=== PATIENT | female | born 1990 | race Caucasian/White ===

== ENCOUNTER 2018-03-17 00:37 | Emergency (ER) | payer BC, MEDICAID ==
[2018-03-17] MEDS ORDERED: Pantoprazole 40 MG Vial IVPUSH ONE (00:59)
[2018-03-17] MEDS ORDERED: Sodium Chloride 0.9% 1,000 ML IV SCH (01:00)
--- NOTE | 2018-03-17 01:26 | EDM.PDOC ---
ED HPI GENERAL MEDICAL PROBLEM - General Chief Complaint: General Stated Complaint: TROUBLE BREATHING AND SWALLOWING Time Seen by Provider: 03/17/18 01:26 Source of Information: Reports: Patient - History of Present Illness INITIAL COMMENTS - FREE TEXT/NARRATIVE: HISTORY AND PHYSICAL: History of present illness: [Patient presents with sensation of a lump in her throat she states she has intermittent wheeze and hoarse voice as compared to previous, she has had some problem with regurgitation of food She has been evaluated by her primary care as recently as today she is scheduled for endoscopy in less than one week currently on Prilosec Zantac and Pepto-Bismol No fever nausea vomiting chills sweats no most sore throat muffled voice drooling or trismus no chest pain shortness breath headache dizziness or palpitation no bowel or urine symptoms Patient is in no apparent distress able to speak full sentences clearly ] Review of systems: As per history of present illness and below otherwise all systems reviewed and negative. Past medical history: As per history of present illness and as reviewed below otherwise noncontributory. Surgical history: As per history of present illness and as reviewed below otherwise noncontributory. Social history: No reported history of drug or alcohol abuse. Family history: As per history of present illness and as reviewed below otherwise noncontributory. Physical exam: HEENT: Atraumatic, normocephalic, pupils reactive, negative for conjunctival pallor or scleral icterus, mucous membranes moist, throat clear, neck supple, nontender, trachea midline. No erythema no mass no stridor Lungs: Clear to auscultation, breath sounds equal bilaterally, chest nontender. Heart: S1S2, regular, negative for clicks, rubs, or JVD. Abdomen: Soft, nondistended, nontender. Negative for masses or hepatosplenomegaly. Negative for costovertebral tenderness. Pelvis: Stable nontender. Genitourinary: Deferred. Rectal: Deferred. Extremities: Atraumatic, negative for cords or calf pain. Neurovascular unremarkable. Neuro: Awake, alert, oriented. Cranial nerves II through XII unremarkable. Cerebellum unremarkable. Motor and sensory unremarkable throughout. Exam nonfocal. Diagnostics: [CBC CMP UA Chest 2 views ] Therapeutics: [Russell saline 1 25 mL Vasotec 1.25 mg IV ]Clonidine 0.1 Impression: [ GERD Hypertension Definitive disposition and diagnosis as appropriate pending reevaluation and review of above. - Related Data Allergies Allergy/AdvReac Type Severity Reaction Status Date / Time No Known Allergies Allergy Verified 03/17/18 00:45 Home Meds: Home Meds Levothyroxine [Synthroid] 1 tab PO DAILY 03/17/18 [History] metFORMIN [Glucophage XR] 1 tab PO BID 03/17/18 [History] Past Medical History Endocrine/Metabolic History: Reports: Diabetes, Type II, Hypothyroidism - Past Surgical History HEENT Surgical History: Reports: Adenoidectomy, Tonsillectomy Social & Family History - Family History Family Medical History: Noncontributory - Tobacco Use Smoking Status *Q: Never Smoker - Recreational Drug Use Recreational Drug Use: No ED ROS GENERAL - Review of Systems Review Of Systems: ROS reveals no pertinent complaints other than HPI. ED EXAM, GENERAL - Physical Exam Exam: See Below Course - Vital Signs Last Recorded V/S: Last Vital Signs Temp 97.3 F 03/17/18 00:37 Pulse 95 03/17/18 02:22 Resp 18 03/17/18 00:37 BP 167/87 H 03/17/18 03:03 Pulse Ox 100 03/17/18 00:37 - Orders/Labs/Meds Orders: Active Orders 24 hr Category Date Time Status EKG Documentation Completion [RC] STAT Care 03/17/18 01:00 Active Chest 1V Frontal [CR] Stat Exams 03/17/18 01:00 Taken HCG QUALITATIVE,URINE [URCHEM] Stat Lab 03/17/18 01:20 Ordered UA W/MICROSCOPIC [URIN] Stat Lab 03/17/18 01:20 Ordered Sodium Chloride 0.9% [Normal Saline] 1,000 ml Med 03/17/18 01:00 Active IV STAT Medication Orders Sodium Chloride (Normal Saline) 1,000 mls @ 125 mls/hr IV STAT NIKO Last Admin: 03/17/18 01:34 Dose: 125 mls/hr Labs: Laboratory Tests 03/17/18 03/17/18 03/17/18 Range/Units 01:20 01:20 01:30 WBC 8.33 (4.0-11.0) K/uL RBC 4.58 (4.30-5.90) M/uL Hgb 14.0 (12.0-16.0) g/dL Hct 41.8 (36.0-46.0) % MCV 91.3 (80.0-98.0) fL MCH 30.6 (27.0-32.0) pg MCHC 33.5 (31.0-37.0) g/dL RDW Std Deviation 40.9 (28.0-62.0) fl RDW Coeff of Eve 12 (11.0-15.0) % Plt Count 282 (150-400) K/uL MPV 10.10 (7.40-12.00) fL Neut % (Auto) 47.5 L (48.0-80.0) % Lymph % (Auto) 40.8 H (16.0-40.0) % Corson % (Auto) 9.8 (0.0-15.0) % Eos % (Auto) 1.4 (0.0-7.0) % Baso % (Auto) 0.5 (0.0-1.5) % Neut # (Auto) 4.0 (1.4-5.7) K/uL Lymph # (Auto) 3.4 H (0.6-2.4) K/uL Corson # (Auto) 0.8 (0.0-0.8) K/uL Eos # (Auto) 0.1 (0.0-0.7) K/uL Baso # (Auto) 0.0 (0.0-0.1) K/uL Sodium (136-145) mmol/L Potassium (3.5-5.1) mmol/L Chloride (98-107) mmol/L Carbon Dioxide (21.0-32.0) mmol/L BUN (7.0-18.0) mg/dL Creatinine (0.6-1.0) mg/dL Est Cr Clr Drug Dosing mL/min Estimated GFR (MDRD) ml/min Glucose (74-106) mg/dL Calcium (8.5-10.1) mg/dL Total Bilirubin (0.2-1.0) mg/dL AST (15-37) IU/L ALT (14-63) IU/L Alkaline Phosphatase (46-116) U/L Total Protein (6.4-8.2) g/dL Albumin (3.4-5.0) g/dL Globulin (2.0-3.5) g/dL Albumin/Globulin Ratio (1.3-2.8) Urine Color YELLOW Urine Appearance CLEAR Urine pH 6.0 (5.0-8.0) Ur Specific Paisley 1.015 (1.001-1.035) Urine Protein NEGATIVE (NEGATIVE) mg/dL Urine Glucose (UA) NEGATIVE (NEGATIVE) mg/dL Urine Ketones 40 H (NEGATIVE) mg/dL Urine Occult Blood NEGATIVE (NEGATIVE) Urine Nitrite NEGATIVE (NEGATIVE) Urine Bilirubin NEGATIVE (NEGATIVE) Urine Urobilinogen 0.2 (<2.0) EU/dL Ur Leukocyte Esterase NEGATIVE (NEGATIVE) Urine RBC 0-2 (0-2/HPF) Urine WBC 0-2 (0-5/HPF) Ur Epithelial Cells FEW (NONE-FEW) Urine Bacteria FEW (NEGATIVE) Urine HCG, Qual NEGATIVE (NEGATIVE) 03/17/18 Range/Units 01:30 WBC (4.0-11.0) K/uL RBC (4.30-5.90) M/uL Hgb (12.0-16.0) g/dL Hct (36.0-46.0) % MCV (80.0-98.0) fL MCH (27.0-32.0) pg MCHC (31.0-37.0) g/dL RDW Std Deviation (28.0-62.0) fl RDW Coeff of Eve (11.0-15.0) % Plt Count (150-400) K/uL MPV (7.40-12.00) fL Neut % (Auto) (48.0-80.0) % Lymph % (Auto) (16.0-40.0) % Corson % (Auto) (0.0-15.0) % Eos % (Auto) (0.0-7.0) % Baso % (Auto) (0.0-1.5) % Neut # (Auto) (1.4-5.7) K/uL Lymph # (Auto) (0.6-2.4) K/uL Corson # (Auto) (0.0-0.8) K/uL Eos # (Auto) (0.0-0.7) K/uL Baso # (Auto) (0.0-0.1) K/uL Sodium 140 (136-145) mmol/L Potassium 3.8 (3.5-5.1) mmol/L Chloride 104 (98-107) mmol/L Carbon Dioxide 21.9 (21.0-32.0) mmol/L BUN 9 (7.0-18.0) mg/dL Creatinine 0.8 (0.6-1.0) mg/dL Est Cr Clr Drug Dosing 100.63 mL/min Estimated GFR (MDRD) > 60.0 ml/min Glucose 166 H (74-106) mg/dL Calcium 9.4 (8.5-10.1) mg/dL Total Bilirubin 0.6 (0.2-1.0) mg/dL AST 64 H (15-37) IU/L ALT 117 H (14-63) IU/L Alkaline Phosphatase 61 (46-116) U/L Total Protein 7.8 (6.4-8.2) g/dL Albumin 4.1 (3.4-5.0) g/dL Globulin 3.7 H (2.0-3.5) g/dL Albumin/Globulin Ratio 1.1 L (1.3-2.8) Urine Color Urine Appearance Urine pH (5.0-8.0) Ur Specific Paisley (1.001-1.035) Urine Protein (NEGATIVE) mg/dL Urine Glucose (UA) (NEGATIVE) mg/dL Urine Ketones (NEGATIVE) mg/dL Urine Occult Blood (NEGATIVE) Urine Nitrite (NEGATIVE) Urine Bilirubin (NEGATIVE) Urine Urobilinogen (<2.0) EU/dL Ur Leukocyte Esterase (NEGATIVE) Urine RBC (0-2/HPF) Urine WBC (0-5/HPF) Ur Epithelial Cells (NONE-FEW) Urine Bacteria (NEGATIVE) Urine HCG, Qual (NEGATIVE) Meds: Medications Generic Name Dose Route Start Last Admin Trade Name Freq PRN Reason Stop Dose Admin Sodium Chloride 1,000 mls @ 125 mls/hr 03/17/18 01:00 03/17/18 01:34 Normal Saline IV 125 mls/hr STAT NIKO Administration Discontinued Medications Generic Name Dose Route Start Last Admin Trade Name Freq PRN Reason Stop Dose Admin Clonidine HCl 0.1 mg 03/17/18 02:31 03/17/18 02:38 Catapres PO 03/17/18 02:32 0.1 mg ONETIME ONE Administration Enalaprilat 1.25 mg 03/17/18 01:41 03/17/18 01:53 Vasotec Iv IVPUSH 03/17/18 01:42 1.25 mg ONETIME ONE Administration Pantoprazole Sodium 80 mg 03/17/18 00:59 03/17/18 01:35 Protonix Iv IVPUSH 03/17/18 01:00 80 mg .BOLUS ONE Administration Departure - Departure Time of Disposition: 03:09 Disposition: Home, Self-Care 01 Condition: Good Clinical Impression: GERD (gastroesophageal reflux disease) - Discharge Information Referrals: PCP,None [Primary Care Provider] - Forms: ED Department Discharge Additional Instructions: Follow-up with endoscopy as scheduled next week Return if symptoms persist or worsen Follow-up with primary care and monitor your blood pressure is you may require medication to control blood pressure The following information is given to patients seen in the emergency department who are being discharged to home. This information is to outline your options for follow-up care. We provide all patients seen in our emergency department with a follow-up referral. The need for follow-up, as well as the timing and circumstances, are variable depending upon the specifics of your emergency department visit. If you don't have a primary care physician on staff, we will provide you with a referral. We always advise you to contact your personal physician following an emergency department visit to inform them of the circumstance of the visit and for follow-up with them and/or the need for any referrals to a consulting specialist. The emergency department will also refer you to a specialist when appropriate. This referral assures that you have the opportunity for follow-up care with a specialist. All of these measure are taken in an effort to provide you with optimal care, which includes your follow-up. Under all circumstances we always encourage you to contact your private physician who remains a resource for coordinating your care. When calling for follow-up care, please make the office aware that this follow-up is from your recent emergency room visit. If for any reason you are refused follow-up, please contact the [facility] emergency department at and asked to speak to the emergency department charge nurse. - My Orders Last 24 Hours: My Active Orders 03/17/18 01:00 EKG Documentation Completion [RC] STAT Chest 1V Frontal [CR] Stat Sodium Chloride 0.9% [Normal Saline] 1,000 ml IV STAT 03/17/18 01:20 HCG QUALITATIVE,URINE [URCHEM] Stat UA W/MICROSCOPIC [URIN] Stat - Assessment/Plan Last 24 Hours: My Active Orders 03/17/18 01:00 EKG Documentation Completion [RC] STAT Chest 1V Frontal [CR] Stat Sodium Chloride 0.9% [Normal Saline] 1,000 ml IV STAT 03/17/18 01:20 HCG QUALITATIVE,URINE [URCHEM] Stat UA W/MICROSCOPIC [URIN] Stat
[2018-03-17] MEDS ORDERED: Enalaprilat 1.25 MG/ML SDV IVPUSH ONE (01:41)
[2018-03-17 01:59] LABS: CHLORIDE,CL 104 mmol/L (98-107); SODIUM,NA 140 mmol/L (136-145)
[2018-03-17] MEDS ORDERED: cloNIDine 0.1 MG Tab PO ONE (02:31)
--- NOTE | 2018-03-19 10:10 | CR ---
EXAM DATE: 03/17/18 PATIENT'S AGE: 27 Patient: MARCO A WASSERMAN Facility: [place], [place] Site . Site : 1990 Study: XRay Chest [id number] 2:00:50 AM Ordering Physician: Dari Caraballo Final Report: Indication: Pain, shortness of breath Technique: Chest 1 view Comparison: None Findings/Impression: Lung volumes are low which accentuate the cardiac size. Normal superior mediastinum. Lungs and pleural spaces are clear. No acute osseous abnormality. Dictated by Angie Montez MD @ Mar 17 2018 2:14AM (Electronic Signature) Report Signed by Proxy. TERESO
== END 2018-03-17 03:25 | disposition home or self-care (01) ==
LOC: MW.ED 00:37
DX: K21.9 Gastro-esophageal reflux disease without esophagitis (principal); I10 Essential (primary) hypertension; E11.9 Type 2 diabetes mellitus without complications; E03.9 Hypothyroidism, unspecified; Z79.899 Other long term (current) drug therapy
CPT/HCPCS: 36415; 71045; 80053; 81001; 81025; 85025; 93005; 96361; 96374; 96375; 99284; A9270; C9113; J7040; 99283

== ENCOUNTER 2018-05-15 07:57 | Day surgery (SDC) | payer BC ==
[~2018-05-15 07:57] MED LIST: Lactated Ringers 1,000 ML IV SCH; Lidocaine 2% 5 ML SDV ONE; Midazolam 1 MG/ML 2 ML SDV ONE; Propofol 200 MG/20 ML SDV ONE; Sodium Chloride 0.9% 10 ML Syringe FLUSH PRN; Sodium Chloride 0.9% 2.5 ML Syringe FLUSH PRN; fentaNYL 100 MCG/2 ML SDV ONE
--- NOTE | 2018-05-15 08:25 | PCM.PREANE ---
Preanesthetic Assessment - Anesthesia/Transfusion/Family Hx Anesthesia History: Prior Anesthesia Without Reaction Family History of Anesthesia Reaction: No Transfusion History: No Prior Transfusion(s) Intubation History: Unknown - Review of Systems General: No Symptoms Pulmonary: No Symptoms Cardiovascular: No Symptoms Gastrointestinal: Diarrhea Neurological: No Symptoms Other: Reports: None - Physical Assessment O2 Sat by Pulse Oximetry: 100 Respiratory Rate: 16 Vital Signs: Last Vital Signs Temp 36.5 C 05/15/18 08:10 Pulse 92 05/15/18 08:10 Resp 16 05/15/18 08:10 BP 161/95 H 05/15/18 08:10 Pulse Ox 100 05/15/18 08:10 Height: 1.68 m Weight: 113.852 kg ASA Class: 3 Mental Status: Alert & Oriented x3 Airway Class: Mallampati = 2 Dentition: Reports: Normal Dentition Thyro-Mental Finger Breadths: 3 Mouth Opening Finger Breadths: 3 ROM/Head Extension: Full Lungs: Clear to Auscultation, Normal Respiratory Effort Cardiovascular: Regular Rate, Regular Rhythm - Allergies Allergies/Adverse Reactions: Allergies Allergy/AdvReac Type Severity Reaction Status Date / Time No Known Allergies Allergy Verified 05/10/18 10:48 - Blood Blood Available: No - Anesthesia Plan Pre-Op Medication Ordered: None - Acknowledgements Anesthesia Type Planned: MAC Pt an Appropriate Candidate for the Planned Anesthesia: Yes Alternatives and Risks of Anesthesia Discussed w Pt/Guardian: Yes Pt/Guardian Understands and Agrees with Anesthesia Plan: Yes PreAnesthesia Questionnaire HEENT History: Reports: Other (See Below) Other HEENT History: wears glasses Cardiovascular History: Reports: High Cholesterol, Other (See Below) Other Cardiovascular History: murmur as an infant Respiratory History: Reports: Other (See Below) Other Respiratory History: states may have sleep apnea but has not been tested Gastrointestinal History: Reports: GERD, Helicobacter Pylori, Other (See Below) (fatty liver) Musculoskeletal History: Reports: Back Pain, Chronic Psychiatric History: Reports: Depression Endocrine/Metabolic History: Reports: Diabetes, Type II, Hypothyroidism ( Dina thyroiditis), Obesity/BMI 30+ (BMI 40.5), Other (See Below) ( metabolic syndrome) - Past Surgical History Head Surgeries/Procedures: Reports: None HEENT Surgical History: Reports: Adenoidectomy, Eye Surgery, Myringotomy w Tube( s), Tonsillectomy - SUBSTANCE USE Smoking Status *Q: Never Smoker Recreational Drug Use History: No - HOME MEDS Home Medications: Home Meds Levothyroxine [Synthroid] 75 mcg PO DAILY 03/17/18 [History] metFORMIN [Glucophage XR] 1,000 mg PO BID 03/17/18 [History] Dulaglutide [Trulicity] 1 injection SUBCUT WEEKLY 05/10/18 [History] Omeprazole 2 tab PO BID 05/10/18 [History] - CURRENT (IN HOUSE) MEDS Current Meds: Current Medications Lactated Ringer's (Ringers, Lactated) 1,000 mls @ 125 mls/hr IV ASDIRECTED NIKO Last Admin: 05/15/18 08:17 Dose: 125 mls/hr Sodium Chloride (Saline Flush) 10 ml FLUSH ASDIRECTED PRN PRN Reason: Keep Vein Open Sodium Chloride (Saline Flush) 2.5 ml FLUSH ASDIRECTED PRN PRN Reason: Keep Vein Open Discontinued Medications Fentanyl (Sublimaze) Confirm Administered Dose 100 mcg .ROUTE .STK-MED ONE Stop: 05/15/18 07:26 Lidocaine (Xylocaine-Mpf 2%) Confirm Administered Dose 5 ml .ROUTE .STK-MED ONE Stop: 05/15/18 07:26 Midazolam HCl (Versed 1 Mg/Ml) Confirm Administered Dose 2 mg .ROUTE .STK-MED ONE Stop: 05/15/18 07:26 Propofol (Diprivan 20 Ml) Confirm Administered Dose 400 mg .ROUTE .STK-MED ONE Stop: 05/15/18 07:26
[2018-05-15] MEDS ORDERED: Ondansetron 4 MG/2 ML SDV ONE (09:11)
--- NOTE | 2018-05-15 09:20 | PCM.OPNOTE ---
- General Post-Op/Procedure Note Date of Surgery/Procedure: 05/15/18 Operative Procedure(s): Diagnostic EGD Findings: Mild duodenitis Pre Op Diagnosis: Dysphagia, history of recent H pylori infection Post-Op Diagnosis: Dysphagia, duodenitis Anesthesia Technique: LUCIANO Primary Surgeon: Geovanna Johsi Condition: Good
--- NOTE | 2018-05-16 11:22 | OR ---
SURGEON: ISIS RUIZ MD DATE OF PROCEDURE: 05/15/2018 PREOPERATIVE DIAGNOSES: 1. History of Helicobacter pylori infection. 2. Dysphagia. POSTOPERATIVE DIAGNOSIS: Duodenitis. PROCEDURE PERFORMED: Diagnostic EGD. ANESTHESIA: MAC. INSTRUMENT USED: Olympus endoscope. EXTENT OF EXAM: To the second portion of the duodenum. PREPARATION: Good. LIMITATIONS: None. INDICATIONS: The patient is a 27-year-old female who presents with dysphagia and recent history of H. pylori infection. She was treated for H. pylori infection, but she still has symptoms of dysphagia. The decision was made to perform a diagnostic EGD. We discussed the procedure as well as expected perioperative course. We discussed the risks including bleeding or perforation. The patient verbalized understanding and wishes to proceed. PROCEDURE IN DETAIL: The patient was brought in to the endoscopy suite and placed in a beach chair position. A time-out was completed verifying the patient's name, age, date of , allergies, and procedure to be performed. Monitored anesthesia care was induced and continuous oxygen was provided via nasal cannula throughout the procedure. A bite block was placed in the patient's mouth. A well-lubricated endoscope was placed in the patient's mouth and advanced under direct visualization to the second portion of the duodenum. This appeared normal and a photograph was taken. The scope was then fully withdrawn while examining the color, texture, anatomy, and integrity of the mucosa of the upper GI tract. The patient was noted to have some [id number] duodenitis in the duodenal bulb. Photographs of this were taken. The scope was then brought into the stomach. A photograph was taken of the pylorus as well as the GE junction. Both appeared normal. The gastric mucosa appeared healthy with no evidence of any inflammation or ulceration. Biopsies were taken of the gastric antrum, body, and fundus and sent for H. pylori testing and histologic review. The scope was brought into the distal esophagus. This appeared normal and a photograph was taken. There was no evidence of any esophagitis. The scope was then removed. The patient tolerated procedure well and was taken to PACU in stable condition. ENDOSCOPIC DIAGNOSIS: Duodenitis. RECOMMENDATIONS: We will have patient followup in clinic in 2 weeks. If the biopsies of her stomach appeared normal, I will order an esophagram to further characterize why the patient is continuing to have dysphagia. She should stay on PPI therapy for now. HUGO BRODREICK /[id number]
== END 2018-05-15 09:47 | disposition home or self-care (01) ==
LOC: MW.SDS 07:57
PROVIDERS: ATTEND Surgery
DX: R13.10 Dysphagia, unspecified (principal); K29.80 Duodenitis without bleeding; K29.50 Unspecified chronic gastritis without bleeding; K59.09 Other constipation; K76.0 Fatty (change of) liver, not elsewhere classified; K21.9 Gastro-esophageal reflux disease without esophagitis; K82.8 Other specified diseases of gallbladder; E06.3 Autoimmune thyroiditis; E11.9 Type 2 diabetes mellitus without complications; E78.00 Pure hypercholesterolemia, unspecified; E78.5 Hyperlipidemia, unspecified; E88.81 Metabolic syndrome and other insulin resistance; E66.01 Morbid (severe) obesity due to excess calories; Z68.41 Body mass index [BMI] 40.0-44.9, adult; G47.30 Sleep apnea, unspecified; F32.9 Major depressive disorder, single episode, unspecified; Z79.84 Long term (current) use of oral hypoglycemic drugs; Z79.899 Other long term (current) drug therapy
CPT/HCPCS: 43239; 81025; J2250; J2405; J3010; J7120; J2704

== ENCOUNTER 2019-10-07 03:42 | Emergency (ER) | payer BC ==
[2019-10-07] MEDS ORDERED: Diphtheria,Pertussis(Acell),Tetanus Vaccine 0.5 ML Syringe IM ONE (03:55)
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
[2019-10-07] MEDS ORDERED: Bacitracin Oint 1 GM U/D Packet TOP ONE (04:51)
[2019-10-07 05:12] LABS: ACETAMINOPHEN <2.0 ug/mL
[2019-10-07 05:23] LABS: BLOOD UREA NITROGEN,BUN 15 mg/dL (7.0-18.0); CARBON DIOXIDE,CO2 24.1 mmol/L (21.0-32.0); CHLORIDE,CL 103 mmol/L (98-107); GLUCOSE RANDOM 160 mg/dL (74-106); POTASSIUM,K 3.8 mmol/L (3.5-5.1); SODIUM,NA 138 mmol/L (136-145)
[2019-10-07] MEDS ORDERED: Nitrofurantoin Monohydrate/Macrocrystalline 100 MG Cap PO ONE (06:35)
== END 2019-10-07 08:15 ==
LOC: MW.ED 03:42
DX: S61.012A Laceration without foreign body of left thumb without damage to nail, initial encounter (principal); N39.0 Urinary tract infection, site not specified; E03.9 Hypothyroidism, unspecified; E11.9 Type 2 diabetes mellitus without complications; E66.9 Obesity, unspecified; Z79.84 Long term (current) use of oral hypoglycemic drugs; X78.1XXA Intentional self-harm by knife, initial encounter
CPT/HCPCS: 12001; 36415; 80053; 80305; 80320; 80329; 81001; 81025; 84443; 85025; 87086; 99284; A9270; J2001; G0480

== ENCOUNTER 2021-03-11 10:52 | Emergency (ER) | payer MEDICAID ==
--- NOTE | 2021-03-11 11:27 | EDM.PDOC ---
ED HPI GENERAL MEDICAL PROBLEM - General Chief Complaint: ENT Problem Stated Complaint: LUMP ON RIGHT SIDE OF FACE/NECK Time Seen by Provider: 03/11/21 11:13 Source of Information: Reports: Patient History Limitations: Reports: No Limitations - History of Present Illness INITIAL COMMENTS - FREE TEXT/NARRATIVE: Patient is a 30-year-old female who presents today for pain and swelling to the left lower jaw area. Patient thought she had a pimple and attempted to pop it a few days ago since that time the swelling has increased as well as the pain. Patient states she now has pain when she is trying to swallow but states she is able to easily swallow saliva in brief without issues. Patient denies any fever chills nausea vomiting. face Pain Score (Numeric/FACES): 9 - Related Data Allergies Allergy/AdvReac Type Severity Reaction Status Date / Time No Known Allergies Allergy Verified 03/11/21 11:12 Home Meds: Home Meds Levothyroxine [Synthroid] 75 mcg PO DAILY 03/17/18 [History] Semaglutide [Ozempic] 0.5 injection SQ ASDIRECTED 10/07/19 [History] Past Medical History HEENT History: Reports: Other (See Below) Other HEENT History: wears glasses Cardiovascular History: Reports: High Cholesterol, Other (See Below) Other Cardiovascular History: murmur as an infant Respiratory History: Reports: Other (See Below) Other Respiratory History: states may have sleep apnea but has not been tested Gastrointestinal History: Reports: GERD, Helicobacter Pylori, Other (See Below) Genitourinary History: Reports: None Musculoskeletal History: Reports: Back Pain, Chronic Neurological History: Reports: None Psychiatric History: Reports: Depression Endocrine/Metabolic History: Reports: Diabetes, Type II, Hypothyroidism, Other (See Below), Obesity/BMI 30+ 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 Hematologic History: Reports: None Immunologic History: Reports: None Oncologic (Cancer) History: Reports: None Dermatologic History: Reports: None - Infectious Disease History Infectious Disease History: Reports: None - Past Surgical History Head Surgeries/Procedures: Reports: None HEENT Surgical History: Reports: Adenoidectomy, Tonsillectomy Social & Family History - Family History Family Medical History: No Pertinent Family History - Caffeine Use Caffeine Use: Reports: None ED ROS ENT - Review of Systems Review Of Systems: See Below Constitutional: Reports: No Symptoms HEENT: Reports: Other (lower jaw pain) Respiratory: Reports: No Symptoms Endocrine: Reports: No Symptoms GI/Abdominal: Reports: No Symptoms : Reports: No Symptoms Musculoskeletal: Reports: No Symptoms Skin: Reports: No Symptoms Neurological: Reports: No Symptoms Psychiatric: Reports: No Symptoms Hematologic/Lymphatic: Reports: No Symptoms Immunologic: Reports: No Symptoms ED EXAM, ENT - Physical Exam Exam: See Below Exam Limited By: No Limitations General Appearance: Alert, WD/WN, No Apparent Distress Mouth/Throat: Normal Gums, Normal Lips, Gum Swelling, Other (redness and tenderness to left lower jaw). No: Trismus Neck: Normal Inspection, Supple, Non-Tender Respiratory/Chest: No Respiratory Distress, Lungs Clear Cardiovascular: Normal Peripheral Pulses, Regular Rate, Rhythm GI/Abdominal: Normal Bowel Sounds, Soft, Non-Tender Neurological: Alert, Oriented Course - Vital Signs Last Recorded V/S: Last Vital Signs Temp 97.7 F 03/11/21 11:22 Pulse 82 03/11/21 13:10 Resp 18 03/11/21 13:10 BP 157/125 H 03/11/21 11:22 Pulse Ox 96 03/11/21 13:10 - Orders/Labs/Meds Orders: Active Orders 24 hr Category Date Time Status CULTURE BLOOD [BC] Stat Lab 03/11/21 11:29 Received CULTURE BLOOD [BC] Stat Lab 03/11/21 11:40 Received Blood Culture x2 Reflex Set [OM.PC] Stat Oth 03/11/21 11:21 Ordered Labs: Laboratory Tests 03/11/21 03/11/21 03/11/21 Range/Units 11:29 11:29 11:29 WBC 9.57 (4.0-11.0) K/uL RBC 4.53 (4.30-5.90) M/uL Hgb 14.3 (12.0-16.0) g/dL Hct 42.4 (36.0-46.0) % MCV 93.6 (80.0-98.0) fL MCH 31.6 (27.0-32.0) pg MCHC 33.7 (31.0-37.0) g/dL RDW Std Deviation 45.6 (28.0-62.0) fl RDW Coeff of Eve 13 (11.0-15.0) % Plt Count 267 (150-400) K/uL MPV 10.10 (7.40-12.00) fL Neut % (Auto) 72.9 (48.0-80.0) % Lymph % (Auto) 17.5 (16.0-40.0) % Prentiss % (Auto) 9.1 (0.0-15.0) % Eos % (Auto) 0.3 (0.0-7.0) % Baso % (Auto) 0.2 (0.0-1.5) % Neut # (Auto) 7.0 H (1.4-5.7) K/uL Lymph # (Auto) 1.7 (0.6-2.4) K/uL Prentiss # (Auto) 0.9 H (0.0-0.8) K/uL Eos # (Auto) 0.0 (0.0-0.7) K/uL Baso # (Auto) 0.0 (0.0-0.1) K/uL Nucleated RBC % 0.0 /100WBC Nucleated RBCs # 0 K/uL Lactate 0.9 (0.20-2.00) mmol/L Sodium 138 (136-145) mmol/L Potassium 3.8 (3.5-5.1) mmol/L Chloride 101 (98-107) mmol/L Carbon Dioxide 25.0 (21.0-32.0) mmol/L BUN 10 (7.0-18.0) mg/dL Creatinine 0.7 (0.6-1.0) mg/dL Est Cr Clr Drug Dosing TNP Estimated GFR (MDRD) > 60.0 ml/min Glucose 121 H (74-106) mg/dL Calcium 8.9 (8.5-10.1) mg/dL Total Bilirubin 0.9 (0.2-1.0) mg/dL AST 18 (15-37) IU/L ALT 46 (14-63) IU/L Alkaline Phosphatase 64 (46-116) U/L Total Protein 7.8 (6.4-8.2) g/dL Albumin 3.9 (3.4-5.0) g/dL Globulin 3.9 (2.6-4.0) g/dL Albumin/Globulin Ratio 1.0 (0.9-1.6) Meds: Medications Discontinued Medications Generic Name Dose Route Start Last Admin Trade Name Jjq PRN Reason Stop Dose Admin Diphenhydramine HCl 25 mg 03/11/21 12:50 03/11/21 13:10 Diphenhydramine 50 Mg/Ml Sdv IVPUSH 03/11/21 12:51 25 mg ONETIME ONE Administration Vancomycin HCl 1.5 gm/ Premix 300 mls @ 200 mls/hr 03/11/21 11:35 03/11/21 11:55 IV 03/11/21 13:04 200 mls/hr ONETIME ONE Administration Iopamidol 75 ml 03/11/21 14:13 03/11/21 14:14 Iopamidol 755 Mg/Ml 500 Ml Multipack Bottle IVPUSH 03/11/21 14:14 75 ml ONETIME STA Administration - Re-Assessments/Exams Free Text/Narrative Re-Assessment/Exam: 03/11/21 14:[address] scan shows some superficial possible cellulitis but no abscess seen. Patient given IV antibiotics you are being discharged home on p.o. antibiotics. Departure - Departure Time of Disposition: 14:21 Disposition: Home, Self-Care 01 Condition: Good Clinical Impression: Cellulitis, face - Discharge Information *PRESCRIPTION DRUG MONITORING PROGRAM REVIEWED*: Not Applicable *COPY OF PRESCRIPTION DRUG MONITORING REPORT IN PATIENT YANIRA: Not Applicable Instructions: Cellulitis, Adult Referrals: Madison Paniagua NP [Primary Care Provider] - Forms: ED Department Discharge Additional Instructions: The following information is given to patients seen in the emergency department who are being discharged to home. This information is to outline your options for follow-up care. We provide all patients seen in our emergency department with a follow-up referral. The need for follow-up, as well as the timing and circumstances, are variable depending upon the specifics of your emergency department visit. If you don't have a primary care physician on staff, we will provide you with a referral. We always advise you to contact your personal physician following an emergency department visit to inform them of the circumstance of the visit and for follow-up with them and/or the need for any referrals to a consulting specialist. The emergency department will also refer you to a specialist when appropriate. This referral assures that you have the opportunity for follow-up care with a specialist. All of these measure are taken in an effort to provide you with optimal care, which includes your follow-up. Under all circumstances we always encourage you to contact your private physician who remains a resource for coordinating your care. When calling for follow-up care, please make the office aware that this follow-up is from your recent emergency room visit. If for any reason you are refused follow-up, please contact the [facility] Emergency Department at and asked to speak to the emergency department charge nurse. Please follow up with your primary care physician. If you do not have a primary care physician, see below: [facility] [address] [place] [id number] My [facility] [address] [place] [address] You are seen today for wound in your left lower jaw. This seems to be a cellulitis and there is no abscess seen. We gave you some IV antibiotics here we will send you home on antibiotics. Please take antibiotics as prescribed if the redness continues to spread or the swelling gets worse please return to ED immediately. Sepsis Event Note (ED) - Focused Exam Vital Signs: Vital Signs Temp Pulse Resp BP Pulse Ox 03/11/21 13:10 82 18 96 03/11/21 11:22 97.7 F 92 16 157/125 H 97 - My Orders Last 24 Hours: My Active Orders 03/11/21 11:21 Blood Culture x2 Reflex Set [OM.PC] Stat 03/11/21 11:29 CULTURE BLOOD [BC] Stat 03/11/21 11:40 CULTURE BLOOD [BC] Stat - Assessment/Plan Last 24 Hours: My Active Orders 03/11/21 11:21 Blood Culture x2 Reflex Set [OM.PC] Stat 03/11/21 11:29 CULTURE BLOOD [BC] Stat 03/11/21 11:40 CULTURE BLOOD [BC] Stat Plan: Patient is a 30-year-old female who presents today for left lower jaw pain and swelling. Seems to be some cellulitis. Will obtain labs provide IV antibiotics and reassess.
[2021-03-11] MEDS ORDERED: VANCOmycin 1.5 GM/300 ML 1.5 GM in Premix Bag 1 BAG IV ONE (11:35)
[2021-03-11 12:10] LABS: BLOOD UREA NITROGEN,BUN 10 mg/dL (7.0-18.0); CHLORIDE,CL 101 mmol/L (98-107); GLUCOSE RANDOM 121 mg/dL (74-106); POTASSIUM,K 3.8 mmol/L (3.5-5.1); SODIUM,NA 138 mmol/L (136-145)
[2021-03-11] MEDS ORDERED: diphenhydrAMINE 50 MG/ML SDV IVPUSH ONE (12:50)
--- NOTE | 2021-03-11 13:28 | CT ---
INDICATION: Left lower jaw swelling TECHNIQUE: CT maxillofacial without contrast. COMPARISON: 01/20/2021 FINDINGS: Facial bones: No fractures or bone lesions. Specifically the nasal bones, temporomandibular joints, maxilla and mandible appear intact. Orbits and globes: Unremarkable. Sinuses: No acute or significant findings. Soft tissues: Soft tissue edema/fat stranding adjacent to the left mandible. IMPRESSION: Soft tissue edema/fat stranding adjacent to the left side of the mandible. No associated osseous abnormalities. No walled-off fluid collections consistent with abscess. Please note that all CT scans at this facility use dose modulation, iterative reconstruction, and/or weight-based dosing when appropriate to reduce radiation dose to as low as reasonably achievable. Dictated by Jcarlos Salomon MD @ 03/11/2021 1:26:[address] Jcalros Salomon @ Mar 11 2021 1:26PM
[2021-03-11] MEDS ORDERED: Iopamidol 755 MG/ML 500 ML Multipack Bottle IVPUSH STA (14:13)
== END 2021-03-11 15:22 | disposition home or self-care (01) ==
LOC: MW.ED 10:52
DX: L03.211 Cellulitis of face (principal); E11.9 Type 2 diabetes mellitus without complications; E03.9 Hypothyroidism, unspecified; Z79.84 Long term (current) use of oral hypoglycemic drugs; Z79.899 Other long term (current) drug therapy
CPT/HCPCS: 70487; 80053; 83605; 85025; 87040; 96365; 96366; 96375; 99284; J1200; J3370; Q9967; 99283